=== PATIENT | female | born 1960 | race Caucasian/White ===

== ENCOUNTER 2017-06-21 15:22 | Emergency (ER) | payer MEDICARE ==
[~2017-06-21] VITALS: Ht 160 cm; Wt 49.0 kg
[~2017-06-21 15:22] MED LIST: ALPR0.5T99 PO; DARV PO
[2017-06-21 15:31] VITALS: BP 124/73; PULSE 112; RESP 22; TEMP 97.9; O2SAT 99
[2017-06-21] MEDS ORDERED: [UNRECOGNIZED DRUG - OTHER] (15:54)
[2017-06-21] MEDS ORDERED: ALPR.25 PO (15:54)
[2017-06-21] MEDS ORDERED: GABA300C5 PO (15:54)
[2017-06-21] MEDS ORDERED: SODIUM CHLORIDE 0.9% FLUSH 10 ML FLUSH IV FLUSH PRN (17:00)
[2017-06-21] MEDS ORDERED: SODIUM CHLOR 0.9% 1000 ML INJ 1,000 ML IV SCH (17:00)
[2017-06-21] MEDS ORDERED: ONDANSETRON HCL 4 MG/2 ML VIAL IVP ONE (17:00)
[2017-06-21] MEDS ORDERED: FAMOTIDINE 20 MG/2 ML VIAL IV PUSH ONE (17:00)
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
--- NOTE | 2017-06-21 17:43 | RADRPT ---
EXAM DATE/TIME: 06/21/2017 17:09 [facility] COMPARISON: No previous studies available for comparison. INDICATIONS : Left hip pain and unable to fully extend leg from unknown injury. MEDICAL HISTORY : None. SURGICAL HISTORY : None. ENCOUNTER: Initial ACUITY: 1 day PAIN SCORE: 10/10 LOCATION: Left hip. FINDINGS: Examination of the left hip was performed with AP Pelvis. The left femoral neck remains markedly fore shortened and deformed. I do not see any evidence of acute fracture. The proximal femur is intact. Th e pelvic ring is intact. CONCLUSION: Deformed left femoral neck without evidence of fracture. Markedly flattened femoral head clearly transit operations supervisor trevon. Av Goodwin MD on June 21, 2017 at 17:39 Board Certified Radiologist. This report was verified electronically.
[2017-06-21 17:46] LABS: AUTOMATED NEUTROPHIL # 10.5 TH/MM3 (1.8-7.7); BASOPHIL # 0.3 TH/MM3 (0-0.2); HEMATOCRIT 42.7 % (35.0-46.0); HEMOGLOBIN 14.1 GM/DL (11.6-15.3); LYMPH % 16.7 % (9.0-44.0); LYMPHOCYTE # 2.2 TH/MM3 (1.0-4.8); MEAN CELL VOLUME 78.8 FL (80.0-100.0); MEAN CORPUSCULAR HGB CONC 32.9 % (32.0-36.0); MEAN PLATELET VOLUME 9.5 FL (7.0-11.0); MONO % 3.2 % (0.0-8.0); MONOCYTE # 0.4 TH/MM3 (0-0.9); NEUT % 78.1 % (16.0-70.0); PLATELET COUNT 321 TH/MM3 (150-450); RED BLOOD COUNT 5.41 MIL/MM3 (4.00-5.30); RED CELL DISTRIBUTION WIDTH 14.5 % (11.6-17.2); WHITE BLOOD COUNT 13.4 TH/MM3 (4.0-11.0)
--- NOTE | 2017-06-21 17:47 | RADRPT ---
EXAM DATE/TIME: 06/21/2017 17:09 [facility] COMPARISON: No previous studies available for comparison. INDICATIONS : Short of breath. MEDICAL HISTORY : None. SURGICAL HISTORY : None. ENCOUNTER: Initial ACUITY: 1 day PAIN SCORE: 0/10 LOCATION: Bilateral chest FINDINGS: There is a vague nodular density overlying the left lung base. CT chest recommended for definitive ev aluation. Right lung appears grossly clear. No significant effusion suspected. Accounting for rotatio n, the cardiac contours are grossly benign. CONCLUSION: Nodular density overlying the left lung base. Recommend CT chest for definitive assessment. Venancio Murguia MD on June 21, 2017 at 17:44 Board Certified Radiologist. This report was verified electronically.
[2017-06-21 17:50] VITALS: O2SAT 98
[2017-06-21 17:54] LABS: INTERNATIONAL NORMALIZED RATIO 1.1 RATIO
[2017-06-21 18:37] LABS: CHLORIDE 107 MEQ/L (98-107); SODIUM (NA) 140 MEQ/L (136-145)
[2017-06-21 18:40] LABS: CALCIUM 8.8 MG/DL (8.5-10.1)
[2017-06-21 18:41] LABS: ALBUMIN 3.3 GM/DL (3.4-5.0); BICARBONATE 22.4 MEQ/L (21.0-32.0); BLOOD UREA NITROGEN 27 MG/DL (7-18); GLUCOSE,RANDOM 113 MG/DL (74-106); LIPASE 157 U/L (73-393)
[2017-06-21 18:44] LABS: ALT (GPT) 23 U/L (10-53); AST (GOT) 17 U/L (15-37); GLOMERULAR FILTRATION RATE 51 ML/MIN (>89)
[2017-06-21 18:45] LABS: BLOOD, URINE NEG (NEG); GLUCOSE,URINE NEG (NEG); KETONE, URINE 40 mg/dL (NEG); NITRITE,URINE NEG (NEG); TOTAL BILIRUBIN ADULT 0.5 MG/DL (0.2-1.0); TOTAL PROTEIN 7.4 GM/DL (6.4-8.2); URINE LEUKOCYTE ESTERASE NEG (NEG)
[2017-06-21 18:47] LABS: ALKALINE PHOSPHATASE 92 U/L (45-117)
[2017-06-21 18:56] LABS: BILIRUBIN, URINE NEG (NEG)
[2017-06-21 18:59] LABS: URINE COLOR YELLOW (YELLW/STRAW)
[2017-06-21 19:00] LABS: SQUAMOUS EPITHELIAL CELL URINE 0-5 /hpf (0-5); WBC, URINE 0-2 /hpf (0-5)
[2017-06-21] MEDS ORDERED: ZOFR4TAB3 SL (19:42)
[2017-06-21] MEDS ORDERED: ROBA750T PO (19:42)
[2017-06-21 19:45] VITALS: BP 111/67
== END 2017-06-21 20:04 | disposition home or self-care (01) ==
LOC: PHED 15:22
DX: K52.9 Noninfective gastroenteritis and colitis, unspecified (principal); M25.552 Pain in left hip; H57.8 Other specified disorders of eye and adnexa; F41.9 Anxiety disorder, unspecified; Z86.69 Personal history of other diseases of the nervous system and sense organs; Z87.19 Personal history of other diseases of the digestive system
CPT/HCPCS: 71045; 73502; 80053; 81001; 83690; 85025; 85610; 85730; 96374; 96375; 99284; J2405; J7030

== ENCOUNTER 2017-09-01 04:22 | Observation (INO) | payer MEDICARE ==
[2017-09-01] VITALS (9 sets, daily range): BP systolic 112–151; BP diastolic 65–96; PULSE 97–113; RESP 16–20; TEMP 96.2–99.3; O2SAT 93–98
[~2017-09-01] VITALS: Ht 160 cm; Wt 52.1 kg
[~2017-09-01 04:22] MED LIST changes: +ALPR.25 PO; -ALPR0.5T99 PO; -DARV PO; +GABA300C5 PO; +ROBA750T PO; +ZOFR4TAB3 SL; +[UNRECOGNIZED DRUG - OTHER]
[2017-09-01] MEDS ORDERED: SODIUM CHLORIDE 0.9% FLUSH 10 ML FLUSH IV FLUSH PRN ×2 (08:00→11:15)
[2017-09-01] MEDS ORDERED: SODIUM CHLOR 0.9% 1000 ML INJ 1,000 ML IV ONE ×2 (08:00→10:30)
[2017-09-01] MEDS ORDERED: LORazepam 2 MG/ML VIAL IV PUSH ONE ×2 (08:00→18:00)
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
[2017-09-01 08:10] LABS: BASOPHIL # 0.5 TH/MM3 (0-0.2); BASOPHIL % 2.1 % (0.0-2.0); EOSINOPHIL # 0.2 TH/MM3 (0-0.4); EOSINOPHIL % 0.7 % (0.0-4.0); HEMATOCRIT 40.9 % (35.0-46.0); HEMOGLOBIN 13.8 GM/DL (11.6-15.3); LYMPH % 10.1 % (9.0-44.0); LYMPHOCYTE # 2.5 TH/MM3 (1.0-4.8); MEAN CELL VOLUME 79.9 FL (80.0-100.0); MEAN CORPUSCULAR HEMOGLOBIN 26.9 PG (27.0-34.0); MEAN CORPUSCULAR HGB CONC 33.6 % (32.0-36.0); MEAN PLATELET VOLUME 8.7 FL (7.0-11.0); MONO % 5.4 % (0.0-8.0); MONOCYTE # 1.3 TH/MM3 (0-0.9); NEUT % 81.7 % (16.0-70.0); PLATELET COUNT 434 TH/MM3 (150-450); RED BLOOD COUNT 5.12 MIL/MM3 (4.00-5.30); RED CELL DISTRIBUTION WIDTH 15.8 % (11.6-17.2); WHITE BLOOD COUNT 24.5 TH/MM3 (4.0-11.0)
--- NOTE | 2017-09-01 08:44 | RADRPT ---
EXAM DATE/TIME: 09/01/2017 08:18 [facility] COMPARISON: No previous studies available for comparison. INDICATIONS : Altered mental status. RADIATION DOSE: 38.91 CTDIvol (mGy) ; Patient motion MEDICAL HISTORY : Gastroesophageal reflux disease. SURGICAL HISTORY : Multiple facial surgeries. Left prosthetic eye. ENCOUNTER: Initial ACUITY: 1 day PAIN SCALE: 0/10 LOCATION: cranial TECHNIQUE: Multiple contiguous axial images were obtained of the head. Using automated exposure control and adj ustment of the mA and/or kV according to patient size, radiation dose was kept as low as reasonably a chievable to obtain optimal diagnostic quality images. DICOM format image data is available electro nically for review and comparison. FINDINGS: CEREBRUM: The ventricles are normal for age. No evidence of midline shift, mass lesion, hemorrhage or acute in farction. No extra-axial fluid collections are seen. POSTERIOR FOSSA: The cerebellum and brainstem are intact. The 4th ventricle is midline. The cerebellopontine angle i s unremarkable. EXTRACRANIAL: Significant deformity is identified involving the left orbit and left maxillary sinus. There is absen ce of the left globe the left lamina papyracea is thickened and calcified. This may represent a surgi meghana prosthesis. Medial wall of the left maxillary sinus is been completely excised. The lateral wall is thickened SKULL: The calvaria is intact. No evidence of skull fracture. CONCLUSION: 1. No evidence of acute intracranial process. 2. Postsurgical and possibly posttraumatic deformity of the left orbit and left facial bones with abs ence of the left globe. Samuel Unger MD on September 01, 2017 at 8:39 Board Certified Radiologist. This report was verified electronically.
[2017-09-01 08:59] LABS: CHLORIDE 92 MEQ/L (98-107); SODIUM (NA) 131 MEQ/L (136-145)
[2017-09-01 09:04] LABS: ALBUMIN 4.2 GM/DL (3.4-5.0); BICARBONATE 25.2 MEQ/L (21.0-32.0); BLOOD UREA NITROGEN 51 MG/DL (7-18); CALCIUM 8.9 MG/DL (8.5-10.1); GLUCOSE,RANDOM 96 MG/DL (74-106)
[2017-09-01 09:07] LABS: ALT (GPT) 19 U/L (10-53); GLOMERULAR FILTRATION RATE 46 ML/MIN (>89)
[2017-09-01 09:08] LABS: TOTAL BILIRUBIN ADULT 0.8 MG/DL (0.2-1.0); TOTAL PROTEIN 8.8 GM/DL (6.4-8.2)
[2017-09-01 09:10] LABS: ALKALINE PHOSPHATASE 121 U/L (45-117)
[2017-09-01 09:10] LABS: BLOOD, URINE MOD (NEG); GLUCOSE,URINE NEG (NEG); KETONE, URINE 40 mg/dL (NEG); NITRITE,URINE NEG (NEG); PH, URINE 5.5 (5.0-8.5); URINE COLOR YELLOW (YELLW/STRAW); URINE LEUKOCYTE ESTERASE NEG (NEG)
[2017-09-01 09:11] LABS: AST (GOT) 27 U/L (15-37)
[2017-09-01 09:13] LABS: BILIRUBIN, URINE NEG (NEG)
[2017-09-01 09:20] LABS: AMORPHOUS SEDIMENT, URINE SMALL; WBC, URINE 0-2 /hpf (0-5)
--- NOTE | 2017-09-01 10:57 | RADRPT ---
EXAM DATE/TIME: 09/01/2017 10:43 [facility] COMPARISON: CHEST SINGLE AP, June 21, 2017, 17:09. INDICATIONS : Short of breath. MEDICAL HISTORY : Gastroesophageal reflux disease. SURGICAL HISTORY : None. ENCOUNTER: Initial ACUITY: 2 days PAIN SCORE: 0/10 LOCATION: Bilateral chest FINDINGS: A single AP semierect view of the chest was obtained. The patient is mildly rotated. There are no con fluent infiltrates or effusions. The heart size is at the upper limits of normal with no perihilar ed rhys. The bony thorax is unremarkable. CONCLUSION: Single view mildly rotated exam. There is no acute cardiac pulmonary disease. Dewayne Miller MD on September 01, 2017 at 10:54 Board Certified Radiologist. This report was verified electronically.
[2017-09-01] MEDS ORDERED: NALOXONE HCL 0.4 MG/ML AMP IV PUSH PRN (11:15)
[2017-09-01] MEDS ORDERED: MAGNESIUM HYDROXIDE SUSP 30 ML CUP PO PRN (11:15)
[2017-09-01] MEDS ORDERED: ONDANSETRON HCL 4 MG/2 ML VIAL IVP PRN (11:15)
--- NOTE | 2017-09-01 11:17 | EKG ---
Date Performed: 09/01/2017 Time Performed: 08:36:51 PTAGE: 57 years EKG: SINUS TACHYCARDIA WITH OCCASIONAL SUPRAVENTRICULAR PREMATURE COMPLEXES RIGHT ATRIAL ENLARGE MENT LEFT ATRIAL ENLARGEMENT NONSPECIFIC ST & T-WAVE ABNORMALITY ABNORMAL ECG NO PREVIOUS TRACING DOCTOR: Michael Vivas Interpretating Date/Time 09/01/2017 11:12:59
[2017-09-01] MEDS: clonazePAM 0.5 MG TAB PO SCH ×2 (13:00→22:39)
[2017-09-01] MEDS: SODIUM CHLOR 0.9% 1000 ML INJ 1,000 ML IV SCH ×2 (13:00→22:40)
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
[2017-09-01] MEDS: SODIUM CHLORIDE 0.9% FLUSH 10 ML FLUSH IV FLUSH SCH (22:39)
[2017-09-01] MEDS: GABAPENTIN 300 MG CAP PO SCH (22:39)
[2017-09-02 00:20] VITALS: BP 132/76; PULSE 89; RESP 18; TEMP 98.3; O2SAT 96
[2017-09-02 05:01] VITALS: BP 137/74; PULSE 87; RESP 18; TEMP 98.8; O2SAT 94
[2017-09-02] MEDS: clonazePAM 0.5 MG TAB PO SCH ×4 (05:16→20:54)
[2017-09-02] MEDS: SODIUM CHLOR 0.9% 1000 ML INJ 1,000 ML IV SCH ×2 (07:10→17:10)
[2017-09-02 07:20] LABS: AUTOMATED NEUTROPHIL # 10.2 TH/MM3 (1.8-7.7); BASOPHIL % 0.2 % (0.0-2.0); EOSINOPHIL % 0.1 % (0.0-4.0); HEMATOCRIT 33.4 % (35.0-46.0); LYMPHOCYTE # 2.4 TH/MM3 (1.0-4.8); MEAN CELL VOLUME 80.6 FL (80.0-100.0); MEAN CORPUSCULAR HGB CONC 32.2 % (32.0-36.0); MONO % 7.5 % (0.0-8.0); NEUT % 74.2 % (16.0-70.0); RED BLOOD COUNT 4.14 MIL/MM3 (4.00-5.30); RED CELL DISTRIBUTION WIDTH 14.9 % (11.6-17.2); WHITE BLOOD COUNT 13.6 TH/MM3 (4.0-11.0)
[2017-09-02 07:35] LABS: HEMOGLOBIN 10.8 GM/DL (11.6-15.3); PLATELET COUNT 302 TH/MM3 (150-450)
[2017-09-02 07:54] LABS: ALBUMIN 3.1 GM/DL (3.4-5.0); ALKALINE PHOSPHATASE 84 U/L (45-117); ALT (GPT) 20 U/L (10-53); AST (GOT) 27 U/L (15-37); BICARBONATE 20.9 MEQ/L (21.0-32.0); BLOOD UREA NITROGEN 22 MG/DL (7-18); CHLORIDE 107 MEQ/L (98-107); CREATININE 0.68 MG/DL (0.50-1.00); GLOMERULAR FILTRATION RATE 89 ML/MIN (>89); GLUCOSE,RANDOM 59 MG/DL (74-106); SODIUM (NA) 140 MEQ/L (136-145); TOTAL BILIRUBIN ADULT 0.8 MG/DL (0.2-1.0); TOTAL PROTEIN 6.6 GM/DL (6.4-8.2)
[2017-09-02 08:00] VITALS: BP 133/91; PULSE 102; RESP 18; TEMP 98.7; O2SAT 96
[2017-09-02] MEDS: GABAPENTIN 300 MG CAP PO SCH ×2 (09:52→20:54)
[2017-09-02] MEDS: SODIUM CHLORIDE 0.9% FLUSH 10 ML FLUSH IV FLUSH SCH ×2 (09:52→20:54)
--- NOTE | 2017-09-02 11:32 | HHI.PR ---
Subjective Remarks Nursing denies any deterioration since last night. Nursing does admit that the patient is not eating that much. Patient herself says that when she does actually look outside the window she thinks she is on a boat right now, specifically a hospital room that is on a boat. When I asked her to look outside the window, she says that most likely I will see water. She does admit that hospital is located on the street when she actually looks outside the window. at the bedside says that she is still confused beyond her baseline. Objective Vital Signs Date Time Temp Pulse Resp B/P (MAP) Pulse Ox O2 Delivery O2 Flow Rate FiO2 09/02/17 08:00 98.7 102 18 133/91 (105) 96 09/02/17 05:01 98.8 87 18 137/74 (95) 94 09/02/17 00:20 98.3 89 18 132/76 (94) 96 09/01/17 21:11 98.1 101 16 127/71 (89) 97 09/01/17 20:00 105 09/01/17 15:53 96.2 97 20 112/65 (81) 93 09/01/17 12:00 97.8 106 20 130/75 (93) 93 I/O 09/01/17 09/01/17 09/01/17 09/02/17 09/02/17 09/02/17 07:00 15:00 23:00 07:00 15:00 23:00 Intake Total 2000 ml 1000 ml 360 ml Balance 2000 ml 1000 ml 360 ml Intake Oral 360 ml IV Total 2000 ml 1000 ml # Voids 2 1 # Bowel Movements 1 Result Diagram: 09/02/1762409/02/1725 Objective Remarks Disoriented to place, oriented to person and time. Appears to be slightly anxious and jittery overall no focal neurological deficits in prox 4 extremities, cooperates with exam and answers questions A/P Assessment and Plan 57-year-old female admitted secondary to Xanax withdrawal encephalopathy 2/2 benzo withdrawal -I will stop the Klonopin and start CIWA protocol -Consulting psychiatry for (1) assistance with medication regimen for anxiety given the patient's history of being treated for anxiety with Xanax and ultimately suffered from Xanax withdrawal since she ran out of her medication sooner than expected as well as (2) persistent confusion. No organic metabolic disease found for patient's confusion. DAYAN - improving w/ IVFs Gastroesophageal reflux disease Migraine headaches -Currently asymptomatic in these regards -No treatments needed at this point DVT prophylaxis SCDs given seizure risk Boris Kendrick MD Sep 02, 2017 11:32
[2017-09-02] MEDS ORDERED: LORazepam 2 MG/ML VIAL IV PUSH PRN ×4 (11:45)
[2017-09-02] MEDS ORDERED: FLUMAZENIL 0.5 MG/5 ML VIAL IV PUSH PRN (11:45)
[2017-09-02] MEDS ORDERED: LORazepam 1 MG TAB PO PRN (11:45)
[2017-09-02] MEDS ORDERED: POTASSIUM CHLORIDE 25 MEQ EFFERVESCENT TAB PO ONE (11:45)
[2017-09-02] MEDS ORDERED: LORazepam 2 MG TAB PO PRN (11:45)
[2017-09-02 13:00] VITALS: BP 122/83; PULSE 93; RESP 15; TEMP 95.7; O2SAT 96
[2017-09-02 16:00] VITALS: BP 121/68; PULSE 88; RESP 15; TEMP 98.6; O2SAT 95
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
[2017-09-02 20:21] VITALS: BP 113/76; PULSE 98; RESP 16; TEMP 98.2; O2SAT 96
[2017-09-03 00:34] VITALS: BP 117/55; PULSE 87; RESP 16; TEMP 97.9; O2SAT 97
[2017-09-03] MEDS: SODIUM CHLOR 0.9% 1000 ML INJ 1,000 ML IV SCH ×2 (03:10→09:29)
[2017-09-03] MEDS: clonazePAM 0.5 MG TAB PO SCH (06:42)
[2017-09-03] MEDS: SODIUM CHLORIDE 0.9% FLUSH 10 ML FLUSH IV FLUSH SCH (07:56)
[2017-09-03] MEDS: GABAPENTIN 300 MG CAP PO SCH (07:56)
[2017-09-03 08:00] VITALS: BP 120/69; PULSE 98; RESP 16; TEMP 97.9; O2SAT 95
[2017-09-03] MEDS ORDERED: POTASSIUM CHLORIDE 25 MEQ EFFERVESCENT TAB NG SCH (09:00)
[2017-09-03] MEDS ORDERED: SERT-132 PO (11:40)
[2017-09-03] MEDS ORDERED: VIST50CA PO (11:40)
[2017-09-03] MEDS ORDERED: CLON0.5T PO (11:40)
[2017-09-03] MEDS ORDERED: TRAZ50TA12 PO (11:40)
--- NOTE | 2017-09-03 11:41 | HHI.DCPOC ---
Discharge Care Plan Diagnosis: (1) Benzodiazepine withdrawal with delirium (2) Altered mental status, unspecified Goals to Promote Your Health * To prevent worsening of your condition and complications * To maintain your health at the optimal level Directions to Meet Your Goals Take your medications as prescribed Follow your dietary instruction Follow activity as directed Keep your appointments as scheduled Take your immunizations and boosters as scheduled If your symptoms worsen call your PCP, if no PCP go to Urgent Care Center or Emergency Room Smoking is Dangerous to Your Health. Avoid second hand smoke Call the 24-hour hour crisis hotline for domestic abuse at Boris Kendrick MD Sep 03, 2017 11:41
--- NOTE | 2017-09-03 11:53 | HHI.DS ---
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 Hernandez is a 57-year-old female. She has a history of chronic Xanax use and this month she has been taking Xanax more frequently than prescribed. She ran out of her Xanax about 3 days ago. Her says she has been mentally confused and that this has happened before. Sodium is slightly low. The patient shows signs of dehydration. White blood cell count is elevated but no signs of infection, the elevation may be related to reaction. Patient is unable to provide any history. CBC/BMP: 09/02/17 0625 09/02/17 0625 Significant Findings Laboratory Tests Test 09/01/17 07:55 09/01/17 08:33 09/01/17 08:57 09/02/17 06:25 White Blood Count 24.5 TH/MM3 (4.0-11.0) 13.6 TH/MM3 (4.0-11.0) Mean Corpuscular Volume 79.9 FL (80.0-100.0) Mean Corpuscular Hemoglobin 26.9 PG (27.0-34.0) 26.0 PG (27.0-34.0) Neutrophils (%) (Auto) 81.7 % (16.0-70.0) 74.2 % (16.0-70.0) Basophils (%) (Auto) 2.1 % (0.0-2.0) Neutrophils # (Auto) 20.0 TH/MM3 (1.8-7.7) 10.2 TH/MM3 (1.8-7.7) Monocytes # (Auto) 1.3 TH/MM3 (0-0.9) 1.0 TH/MM3 (0-0.9) Basophils # (Auto) 0.5 TH/MM3 (0-0.2) Blood Urea Nitrogen 51 MG/DL (7-18) 22 MG/DL (7-18) Creatinine 1.20 MG/DL (0.50-1.00) Total Protein 8.8 GM/DL (6.4-8.2) Alkaline Phosphatase 121 U/L (45-117) Sodium Level 131 MEQ/L (136-145) Chloride Level 92 MEQ/L (98-107) Estimat Glomerular Filtration Rate 46 ML/MIN (>89) Urine Protein 100 mg/dL (NEG-TRACE) Urine Ketones 40 mg/dL (NEG) Urine Occult Blood MOD (NEG) Urine Benzodiazepines Screen POS (NEG) Hemoglobin 10.8 GM/DL (11.6-15.3) Hematocrit 33.4 % (35.0-46.0) Random Glucose 59 MG/DL (74-106) Albumin 3.1 GM/DL (3.4-5.0) Calcium Level 8.0 MG/DL (8.5-10.1) Potassium Level 3.1 MEQ/L (3.5-5.1) Carbon Dioxide Level 20.9 MEQ/L (21.0-32.0) PE at Discharge Lying in bed, fully oriented 3, pleasant conversation, no tremors or shakes, awake, alert Hospital Course Patient was admitted, started on IV fluids. Her kidney function at stabilized. Patient's encephalopathy had also resolved after being started on scheduled Klonopin. Psychiatry was consulted for further assistance. Patient's mentation returned to baseline. She was extensively counseled on the importance of patiently bearing through her anxiety symptoms and only taking her prescribed medications especially her controlled substances as instructed so that she does not run out in undergo withdrawal second time. Patient has verbalized understanding and understands that she will have a very limited source of Klonopin prescribed upon discharge along with daily control of her anxiety with sertraline and trazodone. Patient has met maximal benefit from hospitalization is clinically stable for discharge. Pt Condition on Discharge: Stable Discharge Disposition: Discharge Home Discharge Time: <= 30 minutes Discharge Instructions DIET: Follow Instructions for: Heart Healthy Diet Activities you can perform: See Additionl Instruction Other Activity Instructions: per prior restrictions from PCP; no driving or operating heavy machinery untill cleared by PCP Follow up Referrals: Drug/Alcohol Rehab - 1 Week PCP Follow-up - 1 Week Psychiatry Adult - 1 Week New Medications: Clonazepam (Clonazepam) 0.5 Mg Tab 0.5 MG PO DIRECTED for Anxiety and/or Insomnia, #20 TAB 0 Refills 1 tab po q12 hours orn severe anxiety for first 2 days, then 1 tab po daily prn severe anxiety afterwards Hydroxyzine Pamoate (Vistaril) 50 Mg Cap 50 MG PO QID PRN for moderate anxiety, #100 CAP 0 Refills Sertraline (Sertraline) 50 Mg Tab 50 MG PO DAILY for anxiety, #30 TAB 0 Refills Trazodone (Trazodone) 50 Mg Tab 50 MG PO HS for Control Depression, #30 TAB 0 Refills Continued Medications: Gabapentin (Gabapentin) 300 Mg Cap 300 MG PO BID, #60 CAP 0 Refills Boris Kendrick MD Sep 03, 2017 11:53
== END 2017-09-03 11:50 | disposition home or self-care (01) ==
LOC: PHED 04:22 → INTOOBSV 10:48 → PHEDA 10:48 → PH3B 11:42
PROVIDERS: ADMIT Hospitalist; ATTEND Hospitalist
DX: F13.239 Sedative, hypnotic or anxiolytic dependence with withdrawal, unspecified (principal); D72.829 Elevated white blood cell count, unspecified; E87.1 Hypo-osmolality and hyponatremia; K21.9 Gastro-esophageal reflux disease without esophagitis; G43.909 Migraine, unspecified, not intractable, without status migrainosus; W19.XXXA Unspecified fall, initial encounter; R11.2 Nausea with vomiting, unspecified; F41.9 Anxiety disorder, unspecified; F17.210 Nicotine dependence, cigarettes, uncomplicated; E86.0 Dehydration; Z79.899 Other long term (current) drug therapy; R00.0 Tachycardia, unspecified; G93.40 Encephalopathy, unspecified; N17.9 Acute kidney failure, unspecified
CPT/HCPCS: 70450; 71045; 80053; 80307; 81001; 82948; 84443; 85025; 93005; 96361; 96374; 96375; 96376; 97162; 99285; G0378; G8987; G8988; J2060; J2405; J7030; P9612